=== PATIENT | female | born 1970 | race Caucasian/White ===

== ENCOUNTER 2022-11-09 09:28 | Emergency (ER) | payer MEDICAID, SELFPAY ==
[2022-11-09 09:38] VITALS: BP 81/54; PULSE 85; RESP 20; TEMP 36.1; O2SAT 99
--- NOTE | 2022-11-09 09:42 | W.ED.SKABFB ---
HPI - Skin/Abscess/Foreign Bdy General: Chief complaint: Skin/Abscess/Foreign Body Stated complaint: Abscess on left thigh/butt Time Seen by Provider: 11/09/22 09:32 History of Present Illness: Ms. Meier is a 52-year-old lady with history of tobaccoism presenting to the emergency department for worsening abscess with drainage. She reports first noticing what she felt like it was a hemorrhoid approximately 1 week ago. Initially mild discomfort with it however has subsequently worsened. She was seen at outside hospital and actually admitted with planned operative intervention however went outside to smoke and was told that that meant that she left AMA. She has been on Bactrim however for the past 3 days has had significantly more redness, pain, fevers and generalized malaise. Intensity symptoms is moderate to severe. She denies changes urinating or pain with bowel movements with exception of pain with sitting or putting any other pressure on the abscess. Denies history of frequent skin infections or diabetes. No other specific changes in health, exacerbating, or alleviating factors identified. Onset (ago): week(s) Location: buttocks Severity: severe Quality: aching and other Pain Consistency: constant Relieving factors: none Exacerbating factors: movement and other Context: none Associated symptoms: Reports chills, fever(s) and other Review of Systems General: Reports: 10 or more systems reviewed and unremarkable except in HPI and below Const: Reports: fever(s) and chills [facility] PFSH: Medical History (Updated 11/17/22 @ 00:01 by PRANAV Ventura) No significant past medical history Surgical History (Updated 11/09/22 @ 09:56 by Adam Martinez MD) No significant past surgical history Social History (Updated 11/09/22 @ 09:56 by Adam Martinez MD) Smoking and tobacco status: current every day smoker Physical Exam Const: COMMON NORMALS: alert GENERAL APPEARANCE: cooperative, well developed and ill appearing HENMT: COMMON NORMALS: normocephalic and atraumatic HEAD & SCALP: normocephalic and atraumatic Eye: COMMON NORMALS: conjunctivae normal CONJUNCTIVA: Yes conjunctivae normal SCLERA: sclerae normal Neck/C-Spine: COMMON NORMALS: supple GENERAL: Yes trachea midline Resp: COMMON NORMALS: clear to auscultation bilaterally EFFORT & INSPECTION: Yes able to speak in complete sentences AUSCULTATION: clear to auscultation bilaterally Cardio: COMMON NORMALS: regular rhythm RATE: tachycardic RHYTHM: regular rhythm GI: COMMON NORMALS: Soft to palpation PALPATION: Yes Soft to palpation and No Tenderness to palpation present (GI) : OTHER: Large left inferior gluteal medial abscess with purulent brown drainage, exquisite tenderness palpation, no crepitus, erythematous indurated area with spread to the perineal region Extremity: GENERAL: Yes normal exam except as noted and No edema Neuro: COMMON NORMALS: moves all extremities SENSORIUM/ORIENTATION: Yes alert and No Orientation impaired Psych: COMMON NORMALS: mental status grossly normal and Normal thought process present THOUGHT PROCESS: Normal thought process present Course Vital Signs: Vital signs: Vital Signs Temperature 97.0 F L 11/09/22 09:38 Pulse Rate 73 11/09/22 13:36 Respiratory Rate 18 11/09/22 12:32 Blood Pressure 95/75 11/09/22 13:36 Pulse Oximetry 98 11/09/22 13:36 MDM - Skin/Abscess/Foreign Bdy Medicial Decision Making 52-year-old lady nondiabetic presenting to the emergency department for skin concern. She was seen and evaluated at an outside hospital however apparently left to smoke and therefore had left AGAINST MEDICAL ADVICE. Symptoms have continued to worsen. On initial clinical exam patient is ill-appearing, she has purulent exquisitely tender abscess/cellulitis findings of the left gluteus. Smells polymicrobial concerning for necrotizing infection. Analgesia, IV fluids, broad-spectrum antibiotics as well as clindamycin ordered. Laboratory studies notable for leukocytosis, normal hemoglobin. Metabolic panel with hyponatremia and evidence of metabolic stress. Lactic acid is elevated with improvement on repeat after IV fluids. Transaminitis is likely reactive. CRP is markedly elevated. CT demonstrates extensive subcutaneous emphysema in the gluteal region to the left ischial anal fossa and hamstring tendon and musculature. There is evidence of myositis. Likely etiology of patient's symptoms is necrotizing infection with evidence of sepsis. Discussed with Dr. Mcgregor, patient exceeds our surgical capability at this facility and requires transfer for higher level of care including surgical critical care. Patient accepted to [facility] in [place] for definitive care and surgical management. The results of ED evaluation were discussed with the patient including plan for transfer due to requirement for level of care not available if discharged to prevent significant worsening/deterioration. Patient agreeable with plan. Left ED in guarded condition by EMS. Medical Records I reviewed the patient's medical records. Lab Data I reviewed the patient's lab results. 11/09/22 10:00 11/09/22 10:00 Radiology Impressions Abdomen/Pelvis CT 11/09/22 10:21 IMPRESSION: 1. There is extensive subcutaneous emphysema within the left gluteal region and extending into the left ischioanal fossa and along the left hamstring tendon and musculature. The inferior extent is incompletely imaged. Consider CT of the left thigh with contrast. 2. There is evidence of myositis involving the left gluteal and hamstring musculature with some small ill-defined pockets of fluid density in the hamstring musculature, which could reflect some phlegmon or developing abscess. Laboratory Results WBC 26.2 10^3/uL (4.0-10.0) H 11/09/22 10:00 RBC 3.87 10^6/uL (4.1-5.3) L 11/09/22 10:00 Hgb 12.9 g/dL (11.5-15.3) 11/09/22 10:00 Hct 36.9 % (37.0-47.0) L 11/09/22 10:00 MCV 95.3 fl (81-99) 11/09/22 10:00 MCH 33.3 pg (28.0-34.0) 11/09/22 10:00 MCHC 35.0 g/dL (30.0-36.0) 11/09/22 10:00 RDW 13.9 % (12.1-15.1) 11/09/22 10:00 Plt Count 391 10^3/cmm (130-400) 11/09/22 10:00 MPV 8.9 fL (7.4-10.4) 11/09/22 10:00 Neut % (Auto) 90.4 % 11/09/22 10:00 Lymph % (Auto) 2.9 % 11/09/22 10:00 Hardin % (Auto) 1.7 % 11/09/22 10:00 Eos % (Auto) 0.1 % 11/09/22 10:00 Baso % (Auto) 0.1 % 11/09/22 10:00 Neut # (Auto) 23.74 10^3/uL (1.8-7.7) H 11/09/22 10:00 Lymph # (Auto) 0.8 10^3/uL (0.8-4.8) 11/09/22 10:00 Hardin # (Auto) 0.4 10^3/uL (0.2-0.9) 11/09/22 10:00 Eos # (Auto) 0.0 10^3/uL (0.0-0.8) 11/09/22 10:00 Baso # (Auto) 0.0 10^3/uL (0.0-0.1) 11/09/22 10:00 Nucleated RBC % (auto) 0 % 11/09/22 10:00 Nucleated RBCs # 0.0 /100WBC 11/09/22 10:00 Sodium 126 mmol/L (136-145) L 11/09/22 10:00 Potassium 3.5 mmol/L (3.5-5.1) 11/09/22 10:00 Chloride 87 mmol/L (98-107) L 11/09/22 10:00 Carbon Dioxide 20 mmol/L (22-29) L 11/09/22 10:00 Anion Gap 22.5 (5-19) H 11/09/22 10:00 BUN 19 mg/dL (6-20) 11/09/22 10:00 Creatinine 0.8 mg/dL (0.5-0.9) 11/09/22 10:00 GFR Calculation 75.3 mL/min (90-130) L 11/09/22 10:00 Glucose 147 mg/dL (65-115) H 11/09/22 10:00 Calculated Osmolality 267 mOsm/kg (285-295) L 11/09/22 10:00 Lactic Acid 4.4 mmol/L (0.5-2.2) H* 11/09/22 10:00 Lactic Acid (Sepsis) 2.2 mmol/L (0.5-2.2) 11/09/22 12:08 Calcium 8.6 mg/dL (8.5-10.5) 11/09/22 10:00 Total Bilirubin 1.2 mg/dL (0.15-1.2) 11/09/22 10:00 AST 62 U/L (0-32) H 11/09/22 10:00 ALT 43 U/L (0-33) H 11/09/22 10:00 Alkaline Phosphatase 247 U/L (35-105) H 11/09/22 10:00 C-Reactive Protein 425.2 mg/L (0.0-4.9) H 11/09/22 10:00 Total Protein 6.9 g/dL (6.6-8.7) 11/09/22 10:00 Albumin 2.6 g/dL (3.5-5.2) L 11/09/22 10:00 Globulin 4.3 g/dL (1.3-4.6) 11/09/22 10:00 Critical Care Time Critical Care Time: Critical Care Time: Yes Total Critical Care Time: 50 Attestation: Due to a high probability of clinically significant, possibly life threatening deterioration, the patient required my highest level of attention and preparedness to intervene emergently and I personally spent this critical care time directly and personally managing the patient. This critical care time included obtaining a history; examining the patient; pulse oximetry; ordering and review of laboratory and imaging studies; arranging urgent treatment with development of a management plan; evaluation of patient's response to treatment; frequent reassessment; and, discussions with other providers as applicable. It was exclusive of separately billable procedures. Primary system involved is infectious disease and musculoskeletal Discharge Plan Discharge Patient Disposition: Xfer Short-Term Hosp Clinical Impression: Necrotizing cellulitis, Abscess of skin or subcutaneous tissue, Sepsis, Infective myositis, left thigh Condition: Serious Coding Level of Care Code ED Tour Conductor for Kentrell Holman
[2022-11-09 10:12] LABS: Basophils % 0.1 %; Eosinophils % 0.1 %; Hematocrit 36.9 % (37.0-47.0); Hemoglobin 12.9 g/dL (11.5-15.3); Lymphocytes # 0.8 10^3/uL (0.8-4.8); Lymphocytes % 2.9 %; Mean Corpuscular Hemoglobin 33.3 pg (28.0-34.0); Mean Corpuscular Volume 95.3 fl (81-99); Mean Platelet Volume 8.9 fL (7.4-10.4); Monocytes # 0.4 10^3/uL (0.2-0.9); Monocytes % 1.7 %; Neutrophils # 23.74 10^3/uL (1.8-7.7); Neutrophils % 90.4 %; Nucleated Red Blood Cells % 0 %; Platelet Count 391 10^3/cmm (130-400); Red Blood Count 3.87 10^6/uL (4.1-5.3); Red Cell Distribution Width 13.9 % (12.1-15.1); White Blood Count 26.2 10^3/uL (4.0-10.0)
[2022-11-09] MEDS: fentaNYL 50 mcg/mL INJ 2mL IVP (10:15)
[2022-11-09] MEDS: clindamycin 600 MG/50 ML PREMIX 100 MG IV (10:21)
--- NOTE | 2022-11-09 10:21 | CTR_ITS ---
PROCEDURE INFORMATION: Exam: CT Abdomen And Pelvis With Contrast Exam date and time: 11/09/2022 11:11 AM Age: 52 years old Clinical indication: Other: L buttock abscess, eval deep tracking TECHNIQUE: Imaging protocol: Computed tomography of the abdomen and pelvis with contrast. Radiation optimization: All CT scans at this facility use at least one of these dose optimization techniques: automated exposure control; mA and/or kV adjustment per patient size (includes targeted exams where dose is matched to clinical indication); or iterative reconstruction. Contrast material: OMNI 350; Contrast volume: 100 ml; Contrast route: INTRAVENOUS (IV); REPORTING DATA: Count of CT and Cardiac NM exams in prior 12 months: This patient has received 0 known CTs and 0 known cardiac nuclear medicine studies in the 12 months prior to the current study. COMPARISON: No relevant prior studies available. RADIATION DOSE METRICS: Total DLP (mGy-cm): 503.48 FINDINGS: Liver: Subcentimeter low-density lesions in the liver are too small to characterize, though statistically benign. Larger cyst in the right hepatic lobe. Gallbladder and bile ducts: Normal. No calcified stones. No ductal dilation. Pancreas: Normal. No ductal dilation. Spleen: Normal. No splenomegaly. Adrenal glands: Normal. No mass. Kidneys and ureters: Normal. No hydronephrosis. Stomach and bowel: Unremarkable. No obstruction. No mucosal thickening. Appendix: No evidence of appendicitis. Intraperitoneal space: Unremarkable. No free air. No significant fluid collection. Vasculature: Mild burden of atherosclerotic plaque in the abdominal aorta and branch vessels. No aneurysm. Lymph nodes: Unremarkable. No enlarged lymph nodes. Urinary bladder: Unremarkable as visualized. Reproductive: Unremarkable as visualized. Bones/joints: Unremarkable. No acute fracture. Soft tissues: There is extensive subcutaneous emphysema within the left gluteal region and extending into the left ischioanal fossa and along the left hamstring tendon and musculature. A small sinus tract to the skin surface is seen along the inferior aspect of the gluteal cleft on series 4, image 94. There is edema within the left gluteus musculature and hamstring musculature, which may reflect myositis. Some small pockets of fluid density are seen within the left hamstring musculature. The most conspicuous site measures up to 2.3 cm on series 4, image 97. CT/CT abdomen pelvis w con* [id number] IMPRESSION: 1. There is extensive subcutaneous emphysema within the left gluteal region and extending into the left ischioanal fossa and along the left hamstring tendon and musculature. The inferior extent is incompletely imaged. Consider CT of the left thigh with contrast. 2. There is evidence of myositis involving the left gluteal and hamstring musculature with some small ill-defined pockets of fluid density in the hamstring musculature, which could reflect some phlegmon or developing abscess.
[2022-11-09 10:27] LABS: Alanine Aminotransferase 43 U/L (0-33); Albumin Level 2.6 g/dL (3.5-5.2); Alkaline Phosphatase 247 U/L (35-105); Anion Gap 22.5 (5-19); Aspartate Amino Transferase 62 U/L (0-32); Blood Urea Nitrogen 19 mg/dL (6-20); Calcium 8.6 mg/dL (8.5-10.5); Carbon Dioxide 20 mmol/L (22-29); Chloride 87 mmol/L (98-107); Globulin 4.3 g/dL (1.3-4.6); Glomerular Filtration Rate 75.3 mL/min (90-130); Glucose 147 mg/dL (65-115); Osmolality Calculated 267 mOsm/kg (285-295); Potassium 3.5 mmol/L (3.5-5.1); Sodium 126 mmol/L (136-145); Total Bilirubin 1.2 mg/dL (0.15-1.2); Total Protein 6.9 g/dL (6.6-8.7)
[2022-11-09] MEDS: diphenhydrAMINE 50 mg/mL SDV 1mL IVP (10:38)
[2022-11-09] MEDS: famotidine 20 mg/2 mL INJ 40 MG IVP (10:38)
[2022-11-09 10:40] LABS: Slide Review Slide Review Perform
[2022-11-09 10:41] LABS: Lactic Sepsis W/Reflex 4.4 mmol/L (0.5-2.2)
[2022-11-09] MEDS: iohexol 350 mg/mL 500 mL Btl (per mL) IV (11:21)
[2022-11-09] MEDS: sodium chloride 0.9% 1,632.93 ML 1632.93 ML IV (11:34)
[2022-11-09] MEDS: piperacillin-tazobactam 3.375 GM in sodium chloride 0.9% (plus) 50 ML IV (11:34)
[2022-11-09] MEDS: vancomycin 1,500 MG/300 ML PIGGYBACK 200 MG IV (11:34)
[2022-11-09 11:36] VITALS: BP 103/65
[2022-11-09 11:54] LABS: C Reactive Protein 425.2 mg/L (0.0-4.9); Reflex Lactate Order REFLEX LACTIC ORDERD
[2022-11-09 12:32] VITALS: RESP 18
[2022-11-09] MEDS: HYDROmorphone 1 mg/mL INJ 1 mL 0.5 MG IVP (12:32)
[2022-11-09 12:41] LABS: Lactic Acid level (Lactate) 2.2 mmol/L (0.5-2.2)
[2022-11-09] MEDS: ondansetron 2 mg/ML SDV 2 mL 4 MG IVP (13:03)
[2022-11-09] MEDS: sodium chloride 0.9% 1,000 ML 100 ML IV (13:06)
[2022-11-09 13:36] VITALS: BP 95/75; PULSE 73; O2SAT 98
--- NOTE | 2022-11-14 14:57 | DCPLANNER ---
Addendum entered by Eloise Stevens 11/14/22 14:57: manager heavy duty called patient due to no primary care physician - no answer either time that patient was called Original Note: 11.08.22 - TCM called patient due to no primary care physician
== END 2022-11-09 13:57 | disposition short-term general hospital (02) ==
PROVIDERS: Emergency Provider Emergency Medicine
DX: M60.052 Infective myositis, left thigh (principal); L03.317 Cellulitis of buttock; L02.31 Cutaneous abscess of buttock
CPT/HCPCS: 36415; 74177; 80053; 83605; 85025; 86140; 87040; 96365; 96366; 96367; 96375; 99285; J1170; J1200; J2405; J2543; J2930; J3010; J3370; J3490; J7030; Q9967